=== PATIENT | female | born 1985 | race Caucasian/White ===

== ENCOUNTER 2017-01-28 15:04 | Emergency (ER) | payer MEDICAID ==
--- NOTE | 2017-01-28 15:46 | C.PDOC ---
Time Seen by Provider: 01/28/17 15:18 Chief Complaint (Nursing): GI Problem Past Medical History Vital Signs: Last Vital Signs Temp 97.7 F 01/28/17 15:26 Pulse 86 01/28/17 15:26 Resp 20 01/28/17 15:26 BP 105/67 01/28/17 15:26 Pulse Ox 97 01/28/17 15:26 - Medical History PMH: Asthma - Social History Hx Alcohol Use: No Hx Substance Use: No - Immunization History Hx Tetanus Toxoid Vaccination: No Hx Influenza Vaccination: No Hx Pneumococcal Vaccination: No ED Course And Treatment ECG: Interpreted By Me ECG Rhythm: Sinus Rhythm ECG Interpretation: Normal Rate From EC O2 Sat by Pulse Oximetry: 97 Pulse Ox Interpretation: Normal Disposition - Disposition Forms: [employer] (Portuguese)
[2017-01-28 15:57] LABS: RBC URINE 13 /hpf (0-3); URINE BILIRUBIN NEGATIVE (NEGATIVE); URINE BLOOD 3+ (NEGATIVE); URINE COLOR Yellow (YELLOW); URINE GLUCOSE (UA) NORMAL (Normal); URINE KETONE NEGATIVE (NEGATIVE); URINE LEUKOCYTE ESTERASE TRACE Leu/uL (Negative); URINE PROTEIN 1+ mg/dL (NEGATIVE); URINE UROBILINOGEN NORMAL mg/dL (0.2-1.0); WBC URINE 6 /hpf (0-5)
[2017-01-28] MEDS ORDERED: Aluminum Hydroxide/Magnesium Hydroxide Susp (30 mL) PO STA (16:00)
--- NOTE | 2017-01-28 16:00 | C.PDOC ---
History Of Present Illness 31 year old female presents to the ED with complaints of intermittent chest pain for one week with associated nausea and one episode of vomiting. Via horse stud manager, patient describes pain as sharp and diffuse. Pain worsens when hungry and eating but relieved after eating. Last menstrual period was four years ago. Patient denies SOB, dizziness, abdominal pain, or fever. VIA TRANS INTERMIT CHEST PAIN X 1 WEEK. STABBING DIFFUSE CHEST. WORSE WHEN HUNGRY AND EATING, RELIEVES AFTER EATING. NO SOB, DIZZY. NV X 1. DENIES ABD PAIN. LMP 4 YRS EXAM NEG Time Seen by Provider: 01/28/17 15:18 Chief Complaint (Nursing): GI Problem History Per: Patient, Physician Office Rep (horse stud manager used ) History/Exam Limitations: no limitations Onset/Duration Of Symptoms: Days (1 week ), Intermittent Episodes Current Symptoms Are (Timing): Still Present Quality: Other (stabbing diffuse chest pain) Associated Symptoms: Nausea. denies: Dyspnea, Diaphoresis Exacerbating Factors: Other (when hungry and eating ) Recent travel outside of the [place]: No Past Medical History Reviewed: Historical Data, Nursing Documentation, Vital Signs Vital Signs: Last Vital Signs Temp 97.7 F 01/28/17 15:26 Pulse 86 01/28/17 15:26 Resp 20 01/28/17 15:26 BP 105/67 01/28/17 15:26 Pulse Ox 97 01/28/17 16:17 - Medical History PMH: Asthma Family History: States: Unknown Family Hx - Social History Hx Alcohol Use: No Hx Substance Use: No - Immunization History Hx Tetanus Toxoid Vaccination: No Hx Influenza Vaccination: No Hx Pneumococcal Vaccination: No Review Of Systems Constitutional: Negative for: Fever, Chills Cardiovascular: Positive for: Chest Pain. Negative for: Palpitations Respiratory: Negative for: Cough, Shortness of Breath Gastrointestinal: Positive for: Nausea, Vomiting. Negative for: Abdominal Pain , Diarrhea Physical Exam - Physical Exam Appears: Non-toxic, No Acute Distress Skin: Warm, Dry Head: Atraumatic Eye(s): bilateral: Normal Inspection, EOMI Oral Mucosa: Moist Neck: Supple Chest: Symmetrical, No Deformity, No Tenderness Cardiovascular: Rhythm Regular, No Murmur Respiratory: Normal Breath Sounds, No Rales, No Rhonchi, No Wheezing Gastrointestinal/Abdominal: Soft, No Tenderness, No Distention, No Guarding, No Rebound Extremity: Normal ROM, No Tenderness Neurological/Psych: Oriented x3, Normal Speech, Normal Cognition ED Course And Treatment - Laboratory Results Result Diagrams: 01/28/17 16:28 01/28/17 16:28 Urine POC: Negative ECG: Interpreted By Me ECG Rhythm: Sinus Rhythm ECG Interpretation: Normal Rate From EC O2 Sat by Pulse Oximetry: 97 (room air ) Pulse Ox Interpretation: Normal - Radiology CXR: Interpreted by Me CXR Interpretation: Yes: No Acute Disease Progress Note: EKG, blood work, and CXR were ordered. Patient was given pepcid, lidocaine 2%, and maalox. Reevaluation Time: 18:42 Reassessment Condition: Improved (PS IS ON A DIET. STOPPED DIET WHEN SX STARTED BUT PAIN STILL PERSISTED SO STILL ON DIET. NO DIARRHEA. ADVISED NEED FU PMD, GI. ABD SOFT NT ND NO R/G) Disposition Counseled Patient/Family Regarding: Studies Performed, Diagnosis, Need For Followup, Rx Given - Disposition Referrals: YOUR,PMD [Other] Disposition: HOME/ ROUTINE Disposition Time: 18:42 Condition: IMPROVED Prescriptions: Esomeprazole Magnesium [Nexium] 40 mg PO QPM #30 ecc Famotidine [Pepcid AC] 10 mg PO QN #30 tablet Instructions: Diet for Ulcers and Gastritis (ED), Gastroesophageal Reflux Disease (ED) Forms: [employer] (Bots[place]an) - Clinical Impression Clinical Impression: GERD (gastroesophageal reflux disease) - Scribe Statement The provider has reviewed the documentation as recorded by the Scribe Elisabeth Marie All medical record entries made by the Scribe were at my direction and personally dictated by me. I have reviewed the chart and agree that the record accurately reflects my personal performance of the history, physical exam, medical decision making, and the department course for this patient. I have also personally directed, reviewed, and agree with the discharge instructions and disposition.
[2017-01-28] MEDS ORDERED: Aluminum Hydroxide/Magnesium Hydroxide Susp (30 mL) ONE (16:16)
--- NOTE | 2017-01-28 16:22 | RAD ---
HISTORY: chest pain COMPARISON: None available. TECHNIQUE: Chest PA and lateral FINDINGS: LUNGS: No focal consolidation. Please note that chest x-ray has limited sensitivity for the detection of pulmonary masses. PLEURA: No significant pleural effusion identified. No definite pneumothorax . CARDIOVASCULAR: Heart size appears within normal limits. OSSEOUS STRUCTURES: No acute osseous abnormality identified. VISUALIZED UPPER ABDOMEN: Unremarkable. OTHER FINDINGS: None. IMPRESSION: No focal consolidation, significant pleural effusion, or definite pneumothorax identified.
[2017-01-28 16:33] LABS: EOS % 0.2 % (0.0-4.0); MONO # 0.9 K/uL (0.0-0.8); WHITE BLOOD COUNT 8.9 K/uL (4.8-10.8)
[2017-01-28 16:38] LABS: CHLORIDE 104 mmol/L (98-107); SODIUM 139 mmol/L (132-148)
[2017-01-28 16:39] LABS: POTASSIUM 3.7 mmol/L (3.6-5.2)
[2017-01-28 16:41] LABS: ALB/GLOB RATIO 1.1 (1.0-2.1); ALKALINE PHOSPHATASE 40 U/L (38-126); ALT/SGPT 40 U/L (9-52); AST/SGOT 27 U/L (14-36); BILIRUBIN,TOTAL 0.7 mg/dL (0.2-1.3); BLOOD UREA NITROGEN 14 mg/dL (7-17); CALCIUM 9.3 mg/dl (8.6-10.4); CARBON DIOXIDE 23 mmol/L (22-30); GFR AFRICAN-AMERICAN > 60; GLUCOSE,RANDOM 94 mg/dL (65-105); TOTAL PROTEIN 7.6 g/dL (6.3-8.3)
[2017-01-28 16:44] LABS: BASO % 0.4 % (0.0-2.0); HEMATOCRIT 38.7 % (34.0-47.0); LYMPH # 0.9 K/uL (1.0-4.3); LYMPH % 9.9 % (20.0-40.0); MEAN CELL VOLUME 86.5 fL (81.0-99.0); MEAN CORPUSCULAR HEMOGLOBIN 29.2 pg (27.0-31.0); MEAN CORPUSCULAR HGB CONC 33.7 g/dL (33.0-37.0); MEAN PLATELET VOLUME 7.4 fL (7.2-11.7); MONO % 10.1 % (0.0-10.0); PLATELET COUNT 265 K/uL (130-400); RED CELL DISTRIBUTION WIDTH 13.5 % (11.5-14.5)
[2017-01-28 18:23] LABS: NEUTROPHIL 74 % (50-75); TOTAL CELLS COUNTED 100
[2017-01-28 18:57] VITALS: BP 103/67; PULSE 87; RESP 18; TEMP 98; O2SAT 99
--- NOTE | 2017-01-30 12:28 | CARD ---
APPROVED REPORT EKG Measurement Heart [id number] <Conclusion> Normal sinus rhythm with sinus arrhythmia Normal ECG
== END 2017-01-28 19:00 | disposition home or self-care (01) ==
LOC: C.ER 15:04
DX: K21.9 Gastro-esophageal reflux disease without esophagitis (principal)
CPT/HCPCS: 71020; 80053; 81001; 83690; 84484; 85025; 96372; 96374; 99285; J0500